=== PATIENT | female | born 1955 | race Caucasian/White ===

== ENCOUNTER 2017-09-13 09:59 | Inpatient (IN) | payer OTHER ==
[2017-09-13] MEDS ORDERED: SODIUM CHLORIDE 1,000 ML IV SCH ×2 (10:15→17:45)
--- NOTE | 2017-09-13 10:15 | PDOC ---
History of Present Illness - General Chief Complaint: Pain, Acute Stated Complaint: ABD PAIN Time Seen by Provider: 09/13/17 10:07 History Source: Patient Exam Limitations: No Limitations - History of Present Illness Travel History: No Initial Comments: 09/13/17 10:12 62 y/o female with hx of HTN, presents to ER with RLQ pain since last night, getting wodysuria.rse. Denies back pain, fever or chills. Mild nauseousness, no vomiting or diarrhea. No fall or trauma. No dysuria. Timing/Duration: reports: constant Quality: reports: moderate Abdominal Pain Onset Location: reports: RLQ Pain Radiation: reports: no radiation Past History - Past Medical History Allergies/Adverse Reactions: Allergies Allergy/AdvReac Type Severity Reaction Status Date / Time No Known Allergies Allergy Verified 09/13/17 09:59 Home Medications: Ambulatory Orders Atenolol [Tenormin -] 100 mg PO DAILY 09/13/17 Ranitidine [Zantac -] 150 mg PO DAILY 09/13/17 COPD: No HTN: Yes Other medical history: DIVERTICULITIS - Suicide/Smoking/Psychosocial Hx Smoking History: Never smoked Hx Alcohol Use: No Drug/Substance Use Hx: No Substance Use Type: None Review of Systems - Review of Systems Able to Perform ROS?: Yes Is the patient limited Sinhala proficient: No Constitutional: No: Chills, Fever HEENTM: No: Throat Pain Respiratory: No: Cough, Shortness of Breath Cardiac (ROS): No: Chest Pain, Palpitations ABD/GI: Yes: Nausea, Abdominal cramping. No: Diarrhea, Vomiting All Other Systems: Reviewed and Negative *Physical Exam - Vital Signs Last Vital Signs Temp Pulse Resp BP Pulse Ox 0/0 09/13/17 09:59 - Physical Exam General Appearance: Yes: Nourished, Appropriately Dressed. No: Apparent Distress HEENT: positive: EOMI, MARY, Normal ENT Inspection, Normal Voice Neck: positive: Trachea midline, Normal Thyroid, Supple Respiratory/Chest: positive: Lungs Clear, Normal Breath Sounds. negative: Chest Tender, Respiratory Distress Cardiovascular: positive: Regular Rhythm, Regular Rate, S1, S2 Vascular Pulses: Femoral (R): 4+, Femoral (L): 4+, Carotid (R): 4+, Carotid (L) : 4+, Dorsalis-Pedis (R): 4+, Doralis-Pedis (L): 4+ Gastrointestinal/Abdominal: positive: Normal Bowel Sounds, Tender (RLQ tenderness, no LLQ or LUQ tenderness, no RUQ tenderness noted), Flat, Soft. negative: Organomegaly, Pulsatile Mass Lymphatic: negative: Adenopathy, Tenderness, Other Musculoskeletal: positive: Normal Inspection. negative: CVA Tenderness Extremity: positive: Normal Capillary Refill, Normal Inspection, Normal Range of Motion Integumentary: positive: Normal Color, Dry, Warm Neurologic: positive: shank paperer II-XII NML intact, Fully Oriented, Alert, Normal Mood/ Affect, Normal Response, Motor Strength 03/06 ED Treatment Course - LABORATORY CBC & Chemistry Diagram: 09/13/17 10:20 09/13/17 10:20 - ADDITIONAL ORDERS Additional order review: 09/13/17 14:25 CT abd/pelvis: ruptured appendicitis/ abscess Progress Note - Progress Note Progress Note: Pt with increasing RLQ pain, will obtain CT abdomen/pelvis to r/o appendicitis Spoke with Surgeon Dr. Dougherty, who will trasnfer pt and place on Zosyn Will try interventional drainage first theen possible open lap Pt is in agreement with plan Spoke with Hospitalist Dr. Alberts, agrees with plan *DC/Admit/Observation/Transfer Diagnosis at time of Disposition: Ruptured appendicitis - Discharge Dispostion Condition at time of disposition: Stable Admit: Yes - Referrals - Patient Instructions - Post Discharge Activity
[2017-09-13 10:37] LABS: MCH 31.4 pg (25.7-33.7); MCHC 34.1 g/dl (32.0-36.0); MEAN PLT VOLUME 8.5 fl (7.5-11.1); PLATELET COUNT 168 K/MM3 (134-434); RDW 12.6 % (11.6-15.6); WHITE BLOOD COUNT 15.1 K/mm3 (4.0-10.8)
[2017-09-13 10:42] LABS: URINE BILIRUBIN Negative (NEGATIVE); URINE BLOOD Negative (NEGATIVE); URINE GLUCOSE (UA) Negative (NEGATIVE); URINE KETONE Negative (NEGATIVE); URINE LEUK ESTERASE Negative (NEGATIVE); URINE NITRITE Negative (NEGATIVE); URINE UROBILINOGEN 0.2 (0.2-1.0)
[2017-09-13 10:43] LABS: URINE APPEARANCE CLOUDY; URINE COLOR YELLOW; URINE PROTEIN 2+ (NEGATIVE)
[2017-09-13 10:57] LABS: URINE RBC 0-2 /hpf (0-3)
[2017-09-13 10:58] LABS: ALBUMIN 4.2 g/dl (3.5-5.0); ALK PHOS 57 U/L (32-92); ANION GAP 9 (8-16); BILIRUBIN,TOTAL 1.5 mg/dl (0.2-1.0); CALCIUM 9.1 mg/dl (8.4-10.2); CO2 27 mmol/L (22-28); CREATININE 0.9 mg/dl (0.6-1.3); GLUCOSE,RANDOM 124 mg/dl (74-106); SGOT/AST 30 U/L (10-42); SGPT/ALT 28 U/L (10-40); TOT PROT 7.3 g/dl (6.4-8.3); URINE BACTERIA MANY /hpf (NEGATIVE)
[2017-09-13 11:27] LABS: PLATELET ESTIMATE ADEQUATE
[2017-09-13] MEDS ORDERED: morphine SULFATE 4 MG/ML VIAL IVPUSH ONE (11:43)
[2017-09-13] MEDS ORDERED: ONDANSETRON 4 MG/2 ML VIAL IVPUSH ONE (11:43)
[2017-09-13] MEDS ORDERED: morphine SULFATE 4 MG/ML VIAL ONE (11:44)
[2017-09-13] MEDS ORDERED: ONDANSETRON 4 MG/2 ML VIAL ONE (11:44)
[2017-09-13] MEDS ORDERED: PIPERACILLIN/TAZOBACTAM 3.375 GM VIAL IVPB ONE (13:32)
[2017-09-13] MEDS ORDERED: PIPERACIL/TAZOB 3.375 GM 3.375 GM/50 ML PREMIX IVPB ONE (14:00)
[2017-09-13] MEDS ORDERED: morphine SULFATE 4 MG/ML VIAL IVPUSH PRN ×3 (14:29→19:38)
[2017-09-13] MEDS: FAMOTIDINE 20 MG/50 ML IVPB 20 MG/50 ML MG IVPB SCH (15:15)
--- NOTE | 2017-09-13 15:56 | CONS ---
DATE OF CONSULTATION: 09/13/2017 REQUESTING PHYSICIAN: Dr. Sommers (ER physician.) RESPONDING PHYSICIAN: Ty Caruso MD (General Surgery). REASON FOR CONSULTATION: Perforated appendicitis. HISTORY: This is a 62-year-old woman who states that she has been in her usual state of good health up until about 18 hours ago, when she had developed right lower quadrant pain. Her family prompted her to come to the emergency room for evaluation. Here in the emergency room, she was found to have well-localized right lower quadrant tenderness, and CT evaluation of the abdomen and pelvis was requested and performed. That CT demonstrates evidence that is consistent with perforated appendicitis and a right pelvic abscess measuring approximately 4 cm in diameter. The wall of the abscess seems to be made up of the sigmoid colon, a portion of the terminal ileum, and the distal appendix. The patient states that she does have a lot of arthritic pain and does take a lot of anti-inflammatory medication but has no recollection of having any abdominal symptoms or associated symptoms during the past 1 to 2 weeks. Actually, she states that she has been eating right through yesterday and moving her bowels as of this morning. Her only complaint is well-localized right lower quadrant pain. She denies fever and chills. The patient has no significant past medical history. No history of heart disease; diabetes; respiratory, renal or hepatic insufficiency. Patient does have a history of hypertension. PAST SURGICAL HISTORY: Nil. ALLERGIES: None known. REGULAR MEDICATIONS: Antihypertensives only. SOCIAL HISTORY: Negative tobacco, negative alcohol. FAMILY HISTORY: Significant for lung cancer, which is felt to be tobacco related. REVIEW OF SYSTEMS: Otherwise nil. PHYSICAL EXAMINATION: General: Awake, alert, in no acute distress. Vital Signs: Stable, afebrile. No tachycardia. Abdomen: Obese, soft, with well-localized tenderness in the right lower quadrant associated with guarding. No palpable mass but clear tenderness. LABORATORY DATA: White count 15.1, with a normal hemoglobin and hematocrit. Electrolytes within normal limits. IMPRESSION: Perforated appendicitis with right pelvic abscess. Hemodynamically stable. Well-localized tenderness in the right lower quadrant on examination, with no diffuse findings. Functioning gut. SUGGEST: After a lengthy discussion with patient and her family, I have decided to move in the direction of nonoperative management at this time, intravenous antibiotics, percutaneous drainage. If the patient improves, she will require an interval appendectomy in approximately 12 weeks' time. If the patient fails conservative management or if there is no adequate improvement ultimately, she will require surgery. Given the findings on CT scan, she will likely require laparotomy. At this juncture, patient to be n.p.o. IV Zosyn started, and to continue. Repeat labs in a.m. Clinical followup. Situation reviewed at length with patient and family. All options reviewed, including surgery, at this juncture. Patient wants an attempt at nonoperative management. She is hemodynamically stable and there is no contraindication to such. Will follow and manage. Prognosis guarded. TY CARUSO M.D. ALISON/[id number]
[2017-09-13] MEDS ORDERED: METOPROLOL TARTRATE 5 MG/5 ML VIAL IVPUSH SCH ×2 (16:00→18:00)
--- NOTE | 2017-09-13 16:44 | HP ---
CHIEF COMPLAINT: PCP: HISTORY OF PRESENT ILLNESS: ER course was notable for: (1) (2) (3) Recent Travel: PAST MEDICAL HISTORY: PAST SURGICAL HISTORY: Social History: Smoking: Alcohol: Drugs: Family History: Allergies No Known Allergies Allergy (Verified 09/13/17 09:59) HOME MEDICATIONS: Home Medications Medication Instructions Recorded Atenolol [Tenormin -] 100 mg PO DAILY 09/13/17 Ranitidine [Zantac -] 150 mg PO DAILY 09/13/17 REVIEW OF SYSTEMS CONSTITUTIONAL: Absent: fever, chills, diaphoresis, generalized weakness, malaise, loss of appetite, weight change HEENT: Absent: rhinorrhea, nasal congestion, throat pain, throat swelling, difficulty swallowing, mouth swelling, ear pain, eye pain, visual changes CARDIOVASCULAR: Absent: chest pain, syncope, palpitations, irregular heart rate, lightheadedness , peripheral edema RESPIRATORY: Absent: cough, shortness of breath, dyspnea with exertion, orthopnea, wheezing, stridor, hemoptysis GASTROINTESTINAL: Absent: abdominal pain, abdominal distension, nausea, vomiting, diarrhea, constipation, melena, hematochezia GENITOURINARY: Absent: dysuria, frequency, urgency, hesitancy, hematuria, flank pain, genital pain MUSCULOSKELETAL: Absent: myalgia, arthralgia, joint swelling, back pain, neck pain SKIN: Absent: rash, itching, pallor HEMATOLOGIC/IMMUNOLOGIC: Absent: easy bleeding, easy bruising, lymphadenopathy, frequent infections ENDOCRINE: Absent: unexplained weight gain, unexplained weight loss, heat intolerance, cold intolerance NEUROLOGIC: Absent: headache, focal weakness or paresthesias, dizziness, unsteady gait, seizure, mental status changes, bladder or bowel incontinence PSYCHIATRIC: Absent: anxiety, depression, suicidal or homicidal ideation, hallucinations. PHYSICAL EXAMINATION Vital Signs - 24 hr 09/13/17 09/13/17 09/13/17 09:59 14:38 15:36 Temperature 98 F 98.9 F Pulse Rate 82 Pulse Rate [ 88 Right] Respiratory 18 18 Rate Blood Pressure 187/81 158/85 Blood Pressure 158/85 [Left Arm] O2 Sat by Pulse 95 95 Oximetry (%) 09/13/17 15:48 Temperature 98.5 F Pulse Rate Pulse Rate [ 89 Right] Respiratory 19 Rate Blood Pressure Blood Pressure 158/79 [Left Arm] O2 Sat by Pulse 95 Oximetry (%) GENERAL: Awake, alert, and fully oriented, in no acute distress. HEAD: Normal with no signs of trauma. EYES: Pupils equal, round and reactive to light, extraocular movements intact, sclera anicteric, conjunctiva clear. No lid lag. EARS, NOSE, THROAT: Ears normal, nares patent, oropharynx clear without exudates. Moist mucous membranes. NECK: Normal range of motion, supple without lymphadenopathy, JVD, or masses. LUNGS: Breath sounds equal, clear to auscultation bilaterally. No wheezes, and no crackles. No accessory muscle use. HEART: Regular rate and rhythm, normal S1 and S2 without murmur, rub or gallop. ABDOMEN: Soft, nontender, not distended, normoactive bowel sounds, no guarding, no rebound, no masses. No hepatomegaly or splenomegaly. MUSCULOSKELETAL: Normal range of motion at all joints. No bony deformities or tenderness. No CVA tenderness. UPPER EXTREMITIES: 2+ pulses, warm, well-perfused. No cyanosis. No clubbing. No peripheral edema. LOWER EXTREMITIES: 2+ pulses, warm, well-perfused. No calf tenderness. No peripheral edema. NEUROLOGICAL: Cranial nerves II-XII intact. Normal speech. Normal gait. PSYCHIATRIC: Cooperative. Good eye contact. Appropriate mood and affect. SKIN: Warm, dry, normal turgor, no rashes or lesions noted, normal capillary refill. Laboratory Results - last 24 hr 09/13/17 09/13/17 09/13/17 10:20 10:20 10:20 WBC 15.1 H RBC 4.59 Hgb 14.4 Hct 42.2 MCV 92.0 MCH 31.4 MCHC 34.1 RDW 12.6 Plt Count 168 MPV 8.5 Neutrophils % No Result Required. Neutrophils % (Manual) 81.0 Band Neutrophils % 5.0 Lymphocytes % No Result Required. Lymphocytes % (Manual) 9.0 Monocytes % (Manual) 5 Platelet Estimate Adequate Platelet Comment No Result Required. Sodium 137 Potassium 3.8 Chloride 101 Carbon Dioxide 27 Anion Gap 9 BUN 16 Creatinine 0.9 Creat Clearance w eGFR > 60 Random Glucose 124 H Calcium 9.1 Total Bilirubin 1.5 H AST 30 ALT 28 Alkaline Phosphatase 57 Total Protein 7.3 Albumin 4.2 Lipase < 20 L Urine Color Yellow Urine Appearance Cloudy Urine pH 6.0 Ur Specific [place] >= 1.030 H Urine Protein 2+ H Urine Glucose (UA) Negative Urine Ketones Negative Urine Blood Negative Urine Nitrite Negative Urine Bilirubin Negative Urine Urobilinogen 0.2 Ur Leukocyte Esterase Negative Urine RBC 0-2 Urine WBC 2-5 Ur Epithelial Cells Many Urine Bacteria Many ASSESSMENT/PLAN:
--- NOTE | 2017-09-13 16:44 | HP ---
Admitting History and Physical - Admission History of Present Illness: 62F with PMH of HTN and GERD presents to the ED with a 1 day history of abdominal pain. patient states she was in her usual state of health and was having a great day yesterday when she all of a sudden at 4pm started having abdominal bloating she felt like she had to have a bowl movement and she did have three of them with were normal in formation and character for her habits and she did not have relief. the bloating turned into pain. The pain was worse with movement. This morning she woke up diaphoretic and with chills although she denies having a fever. She had some mild nausea but no vomiting. She denies chest pain or shortness of breath. History Source: Patient Limitations to Obtaining History: No Limitations - Past Medical History Cardiovascular: Yes: HTN Gastrointestinal: Yes: GERD - Past Surgical History Past Surgical History: Yes: Tubal Ligation Additional Past Surgical History: Breast mass removal, parotid surgery x3. all negative for malignancy. - Smoking History Smoking history: Never smoked Have you smoked in the past 12 months: No - Alcohol/Substance Use Hx Alcohol Use: No Home Medications - Allergies Allergies/Adverse Reactions: Allergies Allergy/AdvReac Type Severity Reaction Status Date / Time No Known Allergies Allergy Verified 09/13/17 09:59 - Home Medications Home Medications: Ambulatory Orders Atenolol [Tenormin -] 100 mg PO DAILY 09/13/17 Ranitidine [Zantac -] 150 mg PO DAILY 09/13/17 Review of Systems - Review of Systems Constitutional: reports: Chills, Diaphoresis Eyes: reports: No Symptoms HENT: reports: No Symptoms Neck: reports: No Symptoms Cardiovascular: reports: No Symptoms Respiratory: reports: No Symptoms Gastrointestinal: reports: Abdominal Pain, Bloating, Nausea. denies: Constipation, Diarrhea, Melena, Vomiting Genitourinary: reports: No Symptoms Neurological: reports: No Symptoms Endocrine: reports: No Symptoms Psychiatric: reports: No Symptoms Physical Examination Vital Signs: Vital Signs Temperature 98.5 F 09/13/17 15:48 Pulse Rate 89 09/13/17 15:48 Respiratory Rate 19 09/13/17 15:48 Blood Pressure 158/79 09/13/17 15:48 O2 Sat by Pulse Oximetry (%) 95 09/13/17 15:48 Constitutional: Yes: No Distress, Obese Eyes: Yes: Conjunctiva Clear, EOM Intact HENT: Yes: Atraumatic, Normocephalic Neck: Yes: Supple, Trachea Midline Cardiovascular: Yes: Regular Rate and Rhythm, S1, S2 Respiratory: Yes: Regular, CTA Bilaterally Gastrointestinal: Yes: Soft, Tenderness (RLQ with rebound) Edema: No Neurological: Yes: Alert, Oriented, Cran Nerves II-XII Intact ...Motor Strength: WNL Psychiatric: Yes: Alert, Oriented Labs: CBC, BMP 09/13/17 10:20 09/13/17 10:20 Imaging - Results Cat Scan: Report Reviewed, Image Reviewed Assessment/Plan 62F with PMH of HTN presents to the ED with RLQ abdominal pain found to have acute perforated appendicitis with abscess formation on CT scan. Acute perforated appendicitis with abscess formation: Admit to inpatient med/surg NPO IVF surgery consult appreciated for IR drainage of abscess if unsuccessful then to OR for appendectomy continue IV ABx with zosyn ID consult HTN: Hold PO Atenelol while NPO metoprolol 5mg IV q4h with hold parameters GERD: continue H2 abilio IV FEN: NS @ 125ml/hr no electrolyte issues NPO PPx: HSQ/SCDs Pepcid currently PT consult not indicated Patient seen and examined with attending and admitting risk management intern Full H&P to follow Visit type - Emergency Visit Emergency Visit: Yes Care time: The patient presented to the Emergency Department on the above date and was hospitalized for further evaluation of their emergent condition. - New Patient This patient is new to me today: Yes Date on this admission: 09/13/17 - Critical Care Critical Care patient: No
[2017-09-13] MEDS ORDERED: HEPARIN NA (PORCINE) 5,000 UNITS/ML 1ML VIAL SQ SCH ×2 (17:45→22:00)
[2017-09-13] MEDS ORDERED: ONDANSETRON 4 MG/2 ML VIAL IVPUSH PRN (18:00)
[2017-09-13] MEDS ORDERED: FAMOTIDINE 20 MG/50 ML IVPB 20 MG/50 ML MG IVPB SCH ×2 (18:00→20:15)
[2017-09-13] MEDS ORDERED: PIPERACILLIN/TAZOB 3.375 GM/50 ML PRE-DOCKED IVPB SCH (18:00)
--- NOTE | 2017-09-13 18:01 | HP ---
CHIEF COMPLAINT: Abdominal Pain, Nausea HISTORY OF PRESENT ILLNESS: 62yo F with MHx of HTN and GERD who developed severe cramping abdominal pain centrally located about 16:00 on 09/12 (yesterday). Pt states she had eaten an egg sandwich prior, and thought it was just some GI upset so did not want to come to the ER that day. Pt reports the pain increasing in severity and moving more towards her RLQ. She confirms associated nausea and has subjective fevers with chills some sweats. Pt states she has had 3 formed non-bloody BM since the beginning of her pain. Pt denies vomiting, SOB, CP/discomfort, dysuria, polyuria , and an unexplained change in weight. Denies any steroid usage. ER course was notable for: (1) Abd CT with IV contrast: Probable appendicitis with perforation and 3.4cm x 1.8cm abscess formation; CBD dilation 8mm without hepatic or pancreatic duct involvement. (2) Blood cultures pending (3) Zosyn 3.375 x1 dose administration (4) Dr. 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 Family History: Deferred Allergies No Known Allergies Allergy (Verified 09/13/17 09:59) HOME MEDICATIONS: Home Medications Medication Instructions Recorded Atenolol [Tenormin -] 100 mg PO DAILY 09/13/17 Ranitidine [Zantac -] 150 mg PO DAILY 09/13/17 REVIEW OF SYSTEMS CONSTITUTIONAL: Present: Fever, chills, diaphoresis Absent: generalized weakness, malaise, loss of appetite, weight change HEENT: Absent: rhinorrhea, nasal congestion, throat pain, throat swelling, difficulty swallowing, mouth swelling, ear pain, eye pain, visual changes CARDIOVASCULAR: Absent: chest pain, syncope, palpitations, irregular heart rate, lightheadedness , peripheral edema RESPIRATORY: Absent: cough, shortness of breath, dyspnea with exertion, orthopnea, wheezing, stridor, hemoptysis GASTROINTESTINAL: Present: Abdominal pain, nausea Absent: abdominal distension, vomiting, diarrhea, constipation, melena, hematochezia GENITOURINARY: Absent: dysuria, frequency, urgency, hesitancy, hematuria, flank pain, genital pain MUSCULOSKELETAL: Absent: myalgia, arthralgia, joint swelling, back pain, neck pain SKIN: Absent: rash, itching, pallor HEMATOLOGIC/IMMUNOLOGIC: Absent: easy bleeding, easy bruising, lymphadenopathy, frequent infections ENDOCRINE: Absent: unexplained weight gain, unexplained weight loss, heat intolerance, cold intolerance NEUROLOGIC: Absent: headache, focal weakness or paresthesias, dizziness, unsteady gait, seizure, mental status changes, bladder or bowel incontinence PSYCHIATRIC: Absent: anxiety, depression, suicidal or homicidal ideation, hallucinations. PHYSICAL EXAMINATION Vital Signs - 24 hr 09/13/17 09/13/17 09/13/17 09:59 14:38 15:36 Temperature 98 F 98.9 F Pulse Rate 82 Pulse Rate [ 88 Right] Respiratory 18 18 Rate Blood Pressure 187/81 158/85 Blood Pressure 158/85 [Left Arm] O2 Sat by Pulse 95 95 Oximetry (%) 09/13/17 15:48 Temperature 98.5 F Pulse Rate Pulse Rate [ 89 Right] Respiratory 19 Rate Blood Pressure Blood Pressure 158/79 [Left Arm] O2 Sat by Pulse 95 Oximetry (%) GENERAL: Awake, alert, NAD, resting comfortably in bed HEENT: No JVD, EOMI, KRISTOPHER, sclera anicteric, Dry mucous membranes with normal structures of the mouth, cushingoid appearance with hump on posterior neck LUNGS: CTA bilaterally. No wheezes, rhonchi, rales. HEART: RRR, normal S1 and S2 present without murmur ABDOMEN: Soft, nondistended, no bowel sounds appreciated, tenderness in the RLQ ; all other quadrants NT, no rebound or guarding, negative Rosving's, negative psoas sign, no hepatomegaly appreciated. MUSCULOSKELETAL: Normal range of motion at all joints. No CVA tenderness. EXTREMITIES: 2+ DP pulses, grossly 5/5 in strenght. No edema appreciated. NEUROLOGICAL: Alert and oriented x3. Nonfocal SKIN: Warm, no rashes or lesions noted Laboratory Results - last 24 hr 09/13/17 09/13/17 09/13/17 10:20 10:20 10:20 WBC 15.1 H RBC 4.59 Hgb 14.4 Hct 42.2 MCV 92.0 MCH 31.4 MCHC 34.1 RDW 12.6 Plt Count 168 MPV 8.5 Neutrophils % No Result Required. Neutrophils % (Manual) 81.0 Band Neutrophils % 5.0 Lymphocytes % No Result Required. Lymphocytes % (Manual) 9.0 Monocytes % (Manual) 5 Platelet Estimate Adequate Platelet Comment No Result Required. Sodium 137 Potassium 3.8 Chloride 101 Carbon Dioxide 27 Anion Gap 9 BUN 16 Creatinine 0.9 Creat Clearance w eGFR > 60 Random Glucose 124 H Calcium 9.1 Total Bilirubin 1.5 H AST 30 ALT 28 Alkaline Phosphatase 57 Total Protein 7.3 Albumin 4.2 Lipase < 20 L Urine Color Yellow Urine Appearance Cloudy Urine pH 6.0 Ur Specific [place] >= 1.030 H Urine Protein 2+ H Urine Glucose (UA) Negative Urine Ketones Negative Urine Blood Negative Urine Nitrite Negative Urine Bilirubin Negative Urine Urobilinogen 0.2 Ur Leukocyte Esterase Negative Urine RBC 0-2 Urine WBC 2-5 Ur Epithelial Cells Many Urine Bacteria Many ASSESSMENT/PLAN: 62yo F with only history of HTN GERD and diverticulosis who presented with abdominal pain, nausea, subjective fevers found to have acute appendicitis with perforation and abscess formation via IV contrasted CT of the abdomen. Pt transferred to [facility]. 1) Acute appendicitis with perforation and abscess formation --NPO --NS@125cc/hr --Pain control: Morphine 4mg q4h PRN --Nausea control: Zofran 4mg IVP PRN --General surgery consulted --Pt to go for IR drainage of abscess tomorrow (09/14) --If failure to drain collection, will begin to think about possible intra -abdominal surgery 2) Hypertension --Early hypertensive episodes most likely 2/2 to pain --Continue Lopressor 5mg IVP q4 --Monitor BP 3) GERD --Pepcid 20mg with IVPB BID FEN: Fluids: NS@125cc/hr Electrolyte abnormalities: None currently Nutrition: NPO PPX: DVT - SCDs applied to both legs GI - Pepcid 20mg IVPB BID Dispo: M/S; for IR procedure tomorrow for abscess drainage Case discussed with Dr. De Los Santos and Dr. Adriane Campbell, DO - Internal Medicine PGY-1 Visit type - Emergency Visit Emergency Visit: Yes Care time: The patient presented to the Emergency Department on the above date and was hospitalized for further evaluation of their emergent condition. - New Patient This patient is new to me today: Yes Date on this admission: 09/13/17 - Critical Care Critical Care patient: No
--- NOTE | 2017-09-13 19:20 | PN ---
Teaching Attending Note Name of Resident: Josiah Campbell ATTENDING PHYSICIAN STATEMENT I saw and evaluated the patient. I reviewed the resident's note and discussed the case with the resident. I agree with the resident's findings and plan as documented. SUBJECTIVE: Patient was transferred from [facility] for having appendicitis and possible an abscess. OBJECTIVE: Vital Signs Temperature 98.5 F 09/13/17 15:48 Pulse Rate 89 09/13/17 15:48 Respiratory Rate 19 09/13/17 15:48 Blood Pressure 158/79 09/13/17 15:48 O2 Sat by Pulse Oximetry (%) 95 09/13/17 15:48 CBCD WBC 15.1 K/mm3 (4.0-10.8) H 09/13/17 10:20 RBC 4.59 M/mm3 (3.60-5.2) 09/13/17 10:20 Hgb 14.4 GM/dl (10.7-15.3) 09/13/17 10:20 Hct 42.2 % (32.4-45.2) 09/13/17 10:20 MCV 92.0 fl (80-96) 09/13/17 10:20 MCHC 34.1 g/dl (32.0-36.0) 09/13/17 10:20 RDW 12.6 % (11.6-15.6) 09/13/17 10:20 Plt Count 168 K/MM3 (134-434) 09/13/17 10:20 MPV 8.5 fl (7.5-11.1) 09/13/17 10:20 CMP Sodium 137 mmol/L (136-145) 09/13/17 10:20 Potassium 3.8 mmol/L (3.5-5.1) 09/13/17 10:20 Chloride 101 mmol/L (98-107) 09/13/17 10:20 Carbon Dioxide 27 mmol/L (22-28) 09/13/17 10:20 Anion Gap 9 (8-16) 09/13/17 10:20 BUN 16 mg/dl (7-18) 09/13/17 10:20 Creatinine 0.9 mg/dl (0.6-1.3) 09/13/17 10:20 Creat Clearance w eGFR > 60 (>60) 09/13/17 10:20 Random Glucose 124 mg/dl (74-106) H 09/13/17 10:20 Calcium 9.1 mg/dl (8.4-10.2) 09/13/17 10:20 Total Bilirubin 1.5 mg/dl (0.2-1.0) H 09/13/17 10:20 AST 30 U/L (10-42) 09/13/17 10:20 ALT 28 U/L (10-40) 09/13/17 10:20 Alkaline Phosphatase 57 U/L (32-92) 09/13/17 10:20 Total Protein 7.3 g/dl (6.4-8.3) 09/13/17 10:20 Albumin 4.2 g/dl (3.5-5.0) 09/13/17 10:20 Current Medications Generic Name Dose Route Start Last Admin Trade Name Freq PRN Reason Stop Dose Admin Heparin Sodium (Porcine) 5,000 unit 09/13/17 17:45 Heparin - SQ TID [facility] Sodium Chloride 1,000 mls @ 125 mls/hr 09/13/17 17:45 Normal Saline - IV ASDIR [facility] Famotidine/Sodium Chloride 20 mg in 50 mls @ 100 mls/hr 09/13/17 18:00 Pepcid 20 Mg Premixed Ivpb - IVPB BID [facility] Metoprolol Tartrate 5 mg 09/13/17 18:00 Lopressor Injection - IVPUSH Q4H [facility] Morphine Sulfate 4 mg 09/13/17 17:44 Morphine Sulfate IVPUSH Q4H PRN PAIN Piperacillin Sod/Tazobactam Sod 3.375 gm 09/13/17 18:00 Zosyn 3.375gm Ivpb (Pre-Docked) IVPB 09/14/17 10:01 Q8H [facility] Protocol Home Medications Medication Instructions Recorded Atenolol [Tenormin -] 100 mg PO DAILY 09/13/17 Ranitidine [Zantac -] 150 mg PO DAILY 09/13/17 PE: per resident's note CT of abdomen: Reported Appendicitis with probable perforation and RLQ possible abscess reported ASSESSMENT AND PLAN: 62F with PMH of HTN presents to the ED with RLQ abdominal pain admitted for acute appendicitis and possible an abscess formation on CT scan. #Acute appendicitis with possible abscess formation was reported : NPO, IVF, surgery consult appreciated for IR drainage for possible reported abscess if unsuccessful then to OR for appendectomy, continue IV ABx with zosyn , ID consult HTN: Hold PO Atenelol while NPO, metoprolol 5mg IV q4h with hold parameters GERD: continue H2 abilio IV DVT:px SCD, post IR will restart Heparin sq
[2017-09-13] MEDS ORDERED: METOPROLOL TARTRATE 5 MG/5 ML VIAL IVPUSH PRN ×2 (19:41→20:22)
[2017-09-13] MEDS ORDERED: LACTATED RINGERS SOLUTION 1,000 ML IV SCH (19:45)
[2017-09-13] MEDS: LACTATED RINGERS SOLUTION 1,000 ML IV SCH (19:50)
[2017-09-13] MEDS ORDERED: PIPERACILLIN/TAZOB 3.375 GM 3.375 GM in DEXTROSE 5%-WATER - 50 ML IVPB SCH (20:00)
[2017-09-13] MEDS ORDERED: PIPERACILLIN/TAZOB 3.375 GM 3.375 GM in DEXTROSE 5%-WATER - 50 ML IVPB ONE (20:30)
[2017-09-13] MEDS ORDERED: PIPERACILLIN/TAZOB 3.375 GM/50 ML PRE-DOCKED IVPB ONE (22:00)
[2017-09-14 03:12] VITALS: BMI 35.8
[2017-09-14] MEDS ORDERED: PIPERACIL/TAZOB 3.375 GM 3.375 GM/50 ML PREMIX IVPB ONE (04:00)
[2017-09-14] MEDS: LACTATED RINGERS SOLUTION 1,000 ML IV SCH (06:20)
[2017-09-14 07:18] LABS: MCH 30.6 pg (25.7-33.7); MCHC 32.9 g/dl (32.0-36.0); MEAN CELL VOLUME 93.1 fl (80-96); MEAN PLT VOLUME 8.4 fl (7.5-11.1); PLATELET COUNT 137 K/MM3 (134-434); RDW 13.4 % (11.6-15.6); WHITE BLOOD COUNT 12.2 K/mm3 (4.0-10.0)
[2017-09-14 10:29] LABS: URINE APPEARANCE CLOUDY; URINE BILIRUBIN NEGATIVE (NEGATIVE); URINE BLOOD 1+ (NEGATIVE); URINE COLOR DKYELLOW; URINE GLUCOSE (UA) NEGATIVE (NEGATIVE); URINE KETONE NEGATIVE (NEGATIVE); URINE NITRITE NEGATIVE (NEGATIVE); URINE UROBILINOGEN NEGATIVE mg/dL (0.2-1.0)
[2017-09-14] MEDS ORDERED: PIPERACILLIN/TAZOB 4.5 GM/100 ML PRE-DOCKED IVPB SCH (10:30)
--- NOTE | 2017-09-14 10:30 | PN ---
Progress Note (short form) - Note Progress Note: ID consult dictated imp/reccd appendicitis- possible perforated appendix to continue zosyn check crp f/u cultures surgery/IR evaluations ongoing Problem List - Problems (1) Ruptured appendicitis Code(s): K35.2 - ACUTE APPENDICITIS WITH GENERALIZED PERITONITIS
[2017-09-14 10:36] LABS: URINE PROTEIN 1+ (NEGATIVE)
[2017-09-14 10:38] LABS: URINE RBC 1; URINE WBC 9
[2017-09-14] MEDS ORDERED: PIPERACILLIN/TAZOB 4.5 GM 4.5 GM in DEXTROSE 5%-WATER - 100 ML IVPB SCH (10:45)
[2017-09-14 11:06] LABS: BASOPHIL 0.8 % (0-2.0); EOSINOPHIL 0.4 % (0-4.5); MCH 31.2 pg (25.7-33.7); MCHC 33.5 g/dl (32.0-36.0); MEAN PLT VOLUME 8.1 fl (7.5-11.1); NEUTROPHILS 79.4 % (42.8-82.8); PLATELET COUNT 122 K/MM3 (134-434); RDW 13.1 % (11.6-15.6); WHITE BLOOD COUNT 11.9 K/mm3 (4.0-10.0)
[2017-09-14 11:19] LABS: INR 1.22 (0.82-1.09); PROTHROMBIN TIME (PATIENT) 13.8 SEC (9.98-11.88)
[2017-09-14 11:21] LABS: ACTIVATED PTT 28.3 SECONDS (26.9-34.4)
[2017-09-14 11:41] LABS: ANION GAP 9 (8-16); CALCIUM 8.1 mg/dL (8.5-10.1); CO2 26 mmol/L (21-32); GLUCOSE,RANDOM 106 mg/dL (74-106); SGOT/AST 14 U/L (15-37); SGPT/ALT 22 U/L (12-78)
[2017-09-14 11:43] LABS: ALK PHOS 53 U/L (45-117); BILIRUBIN,TOTAL 1.3 mg/dL (0.2-1.0); TOT PROT 6.3 g/dl (6.4-8.2)
[2017-09-14] MEDS ORDERED: ROCURONIUM BROMIDE 50 MG/5 ML VIAL ONE (12:12)
[2017-09-14] MEDS ORDERED: MIDAZOLAM HCL 2 MG/2 ML SINGLE DOSE VIAL ONE (12:12)
[2017-09-14] MEDS ORDERED: PROPOFOL 20 ML ONE ×3 (12:12)
[2017-09-14] MEDS ORDERED: ePHEDrine SULFATE 50 MG/1 ML AMPULE ONE (12:12)
[2017-09-14] MEDS: FAMOTIDINE 20 MG/50 ML IVPB 20 MG/50 ML MG IVPB SCH (12:20)
--- NOTE | 2017-09-14 12:42 | PN ---
Progress Note (short form) - Note Progress Note: Surgery ct reviewed with Dr. Hoffman. No obvious abscess. Likely fibroid. pt still with significant pain despite iv abx. will proceed with surgery.
[2017-09-14] MEDS ORDERED: oxyCODONE HCL 5 MG TABLET PO PRN (12:45)
[2017-09-14] MEDS ORDERED: ONDANSETRON 4 MG/2 ML VIAL IVPUSH PRN ×2 (12:45→13:30)
[2017-09-14] MEDS ORDERED: PIPERACILLIN/TAZOBACTAM 4.5 GM VIAL IVPB ONE (12:47)
--- NOTE | 2017-09-14 12:49 | OP ---
Operative Note - Note: Operative Date: 09/14/17 Pre-Operative Diagnosis: acute appendicitis Operation: lapaoroscopic appedectomy, lavage Findings: gangrenous, non perforated appendix with phlegmon Surgeon: Josiah Chandra Anesthesiologist/BLUEPRINT TRACER: Garcia Anderson Anesthesia: General Specimens Removed: appendix Drains & Tubes with Location: griffin abd Operative Report Dictated: Yes
[2017-09-14] MEDS ORDERED: NEOSTIGMINE METHYLSULFATE 0.5 MG/ML - 10 ML MDV ONE (13:22)
[2017-09-14] MEDS ORDERED: PROMETHAZINE HCL 25 MG/1 ML VIAL IVPUSH PRN (13:30)
[2017-09-14] MEDS ORDERED: LACTATED RINGERS SOLUTION 1,000 ML IV SCH (13:30)
[2017-09-14] MEDS ORDERED: morphine SULFATE 4 MG/ML VIAL IVPUSH PRN (14:27)
[2017-09-14 17:13] LABS: URINE LEUK ESTERASE Negative (NEGATIVE)
--- NOTE | 2017-09-14 17:33 | EKG ---
Test Reason : Blood Pressure : / mmHG Vent. Rate : 087 BPM Atrial Rate : 087 BPM P-R Int : 174 ms QRS Dur : 092 ms QT Int : 376 ms P-R-T Axes : 033 -08 004 degrees QTc Int : 452 ms NORMAL SINUS RHYTHM POSSIBLE LEFT ATRIAL ENLARGEMENT LEFT VENTRICULAR HYPERTROPHY ABNORMAL ECG NO PREVIOUS ECGS AVAILABLE Confirmed by MARGARET CLARK, MELANIA ([id number]) on 09/14/2017 5:32:35 PM Referred By: DR TODD Confirmed By:MELANIA ROBLES MD
[2017-09-14] MEDS: PIPERACILLIN/TAZOB 4.5 GM 4.5 GM in DEXTROSE 5%-WATER - 100 ML IVPB SCH (17:49)
[2017-09-14] MEDS ORDERED: METOPROLOL TARTRATE 5 MG/5 ML VIAL IVPUSH SCH (18:00)
--- NOTE | 2017-09-14 18:25 | OP ---
DATE OF OPERATION: 09/14/2017 PREOPERATIVE DIAGNOSIS: Acute appendicitis. POSTOPERATIVE DIAGNOSIS: Acute appendicitis. PROCEDURE: Laparoscopic appendectomy and lavage. ATTENDING SURGEON: Josiah Chandra D.O. ANESTHESIOLOGIST: Garcia Anderson M.D. HEAD GROWER: None. INTRAOPERATIVE FINDINGS: Gangrenous appendix, nonperforated, with phlegmon . DRAINS: Raymundo-Nowak drain in the right lower quadrant. BLOOD LOSS: Minimal. COMPLICATIONS: None. DISPOSITION: Recovery in stable condition. BRIEF HISTORY: This is a 62-year-old female admitted to [facility] with signs and symptoms of acute appendicitis. There was initial CAT scan readings suggesting abscess, but on review by interventional radiology this was felt not to be the case. She was still in significant pain despite 24 hours of intravenous antibiotics and presents now for surgery. PROCEDURE: The patient was placed in supine position. After general anesthesia was initiated, the abdomen was prepped and draped in sterile fashion. The patient was on Zosyn antibiotic . Next, a Matamoros catheter was inserted. The abdomen was prepped and draped. A vertical incision was then made infraumbilical with scalpel blade going through skin and subcutaneous tissue. The fascia was then lifted with Zaira clamp, incised vertically. The peritoneum was entered bluntly. Next, 0 Vicryl stitch was placed across the fascial defect and used to secure the Cleaning trocar. Pneumoperitoneum was then created followed by insertion of a 5-mm, 30-degree laparoscope. Of note, the patient's small ventral hernia above this incision was monitored at the time of surgery. Next, two 5-mm trocars were placed, 1 suprapubic with care to avoid injuring the bladder and 1 in the left lower quadrant lateral to the rectus muscle. At this point, attention was turned toward the right lower quadrant. The appendix was seen. It was thick and inflamed, and gangrenous. The fat from the ligament of Treitz was wrapping over it, as well as the peritoneal cavity serving as a phlegmon. This was teased off. The medial appendix was divided with using Ligasure device. The Endo LILIANA 60-mm purple load stapler was used to divide the appendix at its base. The staple line was inspected, it was intact. There was no bleeding, no break, no sign of ischemia. The appendix was removed through the infraumbilical trocar site in a specimen bag, and sent to pathology marked as specimen. A vigorous lavage was done, all return was clear. There was fibrinous exudate located at the phlegmon space, and a Raymundo-Nowak drain was left in this location and brought out through the suprapubic trocar site and secured with a silk running stitch. Trocars were removed under direct visualization and no bleeding was noted. Overall the patient tolerated the procedure well. The fascia in the infraumbilical trocar site was closed with multiple interrupted 0 Vicryl sutures. The two remaining skin incisions were closed with Biosyn, and Dermabond dressing was placed. Overall, the patient tolerated procedure well. There were no complications. Blood loss was minimal. DO ZACKERY MATIAS/[id number] MTDD
--- NOTE | 2017-09-14 18:31 | PN ---
Teaching Attending Note Name of Resident: Josiah Campbell ATTENDING PHYSICIAN STATEMENT I saw and evaluated the patient. I reviewed the resident's note and discussed the case with the resident. I agree with the resident's findings and plan as documented. SUBJECTIVE: Patient continues to c/o having RLQ pain. OBJECTIVE: Vital Signs Temperature 97.8 F 09/14/17 15:35 Pulse Rate 80 09/14/17 15:35 Respiratory Rate 18 09/14/17 15:35 Blood Pressure 150/80 09/14/17 15:35 O2 Sat by Pulse Oximetry (%) 98 09/14/17 15:35 CBCD WBC 11.9 K/mm3 (4.0-10.0) H 09/14/17 10:45 RBC 4.03 M/mm3 (3.60-5.2) 09/14/17 10:45 Hgb 12.6 GM/dL (10.7-15.3) 09/14/17 10:45 Hct 37.5 % (32.4-45.2) 09/14/17 10:45 MCV 93.0 fl (80-96) 09/14/17 10:45 MCHC 33.5 g/dl (32.0-36.0) 09/14/17 10:45 RDW 13.1 % (11.6-15.6) 09/14/17 10:45 Plt Count 122 K/MM3 (134-434) L 09/14/17 10:45 MPV 8.1 fl (7.5-11.1) 09/14/17 10:45 CMP Sodium 140 mmol/L (136-145) 09/14/17 10:45 Potassium 3.8 mmol/L (3.5-5.1) 09/14/17 10:45 Chloride 105 mmol/L (98-107) 09/14/17 10:45 Carbon Dioxide 26 mmol/L (21-32) 09/14/17 10:45 Anion Gap 9 (8-16) 09/14/17 10:45 BUN 13 mg/dL (7-18) 09/14/17 10:45 Creatinine 1.0 mg/dL (0.55-1.02) 09/14/17 10:45 Creat Clearance w eGFR 55.82 (>60) 09/14/17 10:45 Random Glucose 106 mg/dL (74-106) 09/14/17 10:45 Calcium 8.1 mg/dL (8.5-10.1) L 09/14/17 10:45 Total Bilirubin 1.3 mg/dL (0.2-1.0) H 09/14/17 10:45 AST 14 U/L (15-37) L 09/14/17 10:45 ALT 22 U/L (12-78) 09/14/17 10:45 Alkaline Phosphatase 53 U/L (45-117) 09/14/17 10:45 Total Protein 6.3 g/dl (6.4-8.2) L 09/14/17 10:45 Albumin 3.0 g/dl (3.4-5.0) L 09/14/17 10:45 Current Medications Generic Name Dose Route Start Last Admin Trade Name Freq PRN Reason Stop Dose Admin Atenolol 100 mg 09/15/17 10:00 Tenormin - PO DAILY [facility] Heparin Sodium (Porcine) 5,000 unit 09/14/17 22:00 Heparin - SQ TID [facility] Piperacillin Sod/Tazobactam 100 mls @ 200 mls/hr 09/14/17 18:00 09/14/17 17: 49 Sod 4.5 gm/ Dextrose IVPB 200 mls/hr Q8H-IV [facility] Administration Morphine Sulfate 4 mg 09/14/17 14:27 Morphine Sulfate IVPUSH Q4H PRN PAIN Ondansetron HCl 4 mg 09/14/17 13:30 Zofran Injection IVPUSH Q6H PRN NAUSEA AND/OR VOMITING Oxycodone HCl 7.5 mg 09/14/17 12:45 Roxicodone - PO Q4H PRN PAIN Ranitidine HCl 150 mg 09/15/17 10:00 Zantac - PO DAILY [facility] Home Medications Medication Instructions Recorded Atenolol [Tenormin -] 100 mg PO DAILY 09/13/17 Ranitidine [Zantac -] 150 mg PO DAILY 09/13/17 PE: per resident's note CT of abdomen: Reported Appendicitis with probable perforation and RLQ possible abscess reported ASSESSMENT AND PLAN: 62F with PMH of HTN presents to the ED with RLQ abdominal pain admitted for acute appendicitis and possible an abscess formation on CT scan. #Acute appendicitis with possible abscess formation was reported : NPO, IVF, on IV antibiotic ZOsyn continue ID on the case. patient is going for sx. reviewed the Ct of abdomen and reported that there is no obvious abscess. Called and discussed with that patient needs to go to OR since No obvious abscess reported and patient continues to have severe pain. Patient is going for Sx this morning by discussed with. #HTN: Hold PO Atenelol while NPO, metoprolol 5mg IV q4h with hold parameters #GERD: continue H2 abilio IV DVT:px SCD, heparin sq
[2017-09-14] MEDS: HEPARIN NA (PORCINE) 5,000 UNITS/ML 1ML VIAL SQ SCH (21:28)
[2017-09-14] MEDS ORDERED: FAMOTIDINE 20 MG/50 ML IVPB 20 MG/50 ML MG IVPB SCH (22:00)
[2017-09-15] MEDS: PIPERACILLIN/TAZOB 4.5 GM 4.5 GM in DEXTROSE 5%-WATER - 100 ML IVPB SCH ×3 (01:19→17:22)
[2017-09-15] MEDS: HEPARIN NA (PORCINE) 5,000 UNITS/ML 1ML VIAL SQ SCH ×3 (06:15→21:09)
[2017-09-15 08:20] LABS: MCH 30.7 pg (25.7-33.7); MEAN CELL VOLUME 93.1 fl (80-96); MEAN PLT VOLUME 9.2 fl (7.5-11.1); RDW 13.1 % (11.6-15.6); WHITE BLOOD COUNT 13.3 K/mm3 (4.0-10.0)
[2017-09-15] MEDS ORDERED: PT OWN MED DRAWER 7, Y5N ONE (08:54)
[2017-09-15] MEDS: ATENOLOL 50 MG TABLET (FP) PO SCH (09:05)
[2017-09-15] MEDS: RANITIDINE HCL 150 MG TABLET (FP) PO SCH (09:05)
[2017-09-15 10:19] LABS: PLATELET COUNT 140 K/MM3 (134-434)
--- NOTE | 2017-09-15 12:03 | PN ---
Progress Note (short form) - Note Progress Note: doing well s/p lap appy for appendicitis- found to have gangrenous appendix with phlegmon , no perforation no pain, tolerating clears Vital Signs Period Temp Pulse Resp BP Sys/Bernardo Pulse Ox Last 24 Hr 97.5 F-99.4 F 78-94 16-20 133-158/53-98 95-100 cor-rrr lungs clear abd soft, +drain, NT ext no edema CBC, BMP 09/15/17 07:00 09/14/17 10:45 Microbiology 09/13/17 20:10 Blood - Peripheral Venous Blood Culture - Preliminary NO GROWTH OBTAINED AFTER 24 HOURS, INCUBATION TO CONTINUE FOR 4 DAYS. 09/13/17 20:10 Blood - Peripheral Venous Blood Culture - Preliminary NO GROWTH OBTAINED AFTER 24 HOURS, INCUBATION TO CONTINUE FOR 4 DAYS. 09/13/17 14:00 Blood - Peripheral Venous Blood Culture - Preliminary NO GROWTH OBTAINED AFTER 24 HOURS, INCUBATION TO CONTINUE FOR 4 DAYS. 09/13/17 13:46 Blood - Peripheral Venous Blood Culture - Preliminary NO GROWTH OBTAINED AFTER 24 HOURS, INCUBATION TO CONTINUE FOR 4 DAYS. a/p appendicitis- POD #1, s/p ex lap to continue zosyn f/u cultures ?home in am Problem List - Problems (1) Ruptured appendicitis Code(s): K35.2 - ACUTE APPENDICITIS WITH GENERALIZED PERITONITIS
--- NOTE | 2017-09-15 12:29 | PN ---
Progress Note (short form) - Note Progress Note: surgery pt seen and examined. feels well. no pain. voiding. tolerating liquids. afebrile abd-soft, nt, incisions clean, grififn serous Laboratory Tests 09/15/17 07:00 WBC 13.3 H A/P 1) Pod#1- full liquids till Thursday, cont griffin, stop ivf 2) gangrenous appendicitis- cont griffin, cont iv abx, follow wbc 3) prophylaxis- lovenox, protonix, oob, spirometer
--- NOTE | 2017-09-15 16:51 | PN ---
Physical Exam: SUBJECTIVE: Pt reports no acute events no overnight. States she feels slight tenderness and has much improved pain from before. Pt has not been taking any pain medication, confirmed by nursing and by [employer]. Pt states she has been walking around and has been tolerating her liquid diet without nausea and vomiting. OBJECTIVE: Vital Signs Period Temp Pulse Resp BP Sys/Bernardo Pulse Ox Last 24 Hr 97.5 F-98.2 F 78-94 18-20 148-163/76-98 98 GENERAL: Awake, alert, NAD, resting comfortably in chair HEENT: No JVD, EOMI, KRISTOPHER, moist mucous membranes with normal structures of the mouth, cushingoid appearance LUNGS: CTA bilaterally. No wheezes, rhonchi, rales. Very good air entry HEART: RRR, normal S1 and S2 present without murmur ABDOMEN: Soft, nondistended, normoactive bowel sounds, Incisions with surgical glue C/D/I, slight tenderness in post-surgical area, but otherwise NT, MELISA drain with <10 cc of serosanguinous drainage. MUSCULOSKELETAL: Normal range of motion at all joints. No CVA tenderness. EXTREMITIES: 2+ DP pulses, grossly 5/5 in strength. No edema appreciated. NEUROLOGICAL: Alert and oriented x3. Nonfocal Laboratory Results - last 24 hr 09/14/17 09/15/17 09/15/17 07:45 07:00 07:00 WBC 13.3 H RBC 4.21 Hgb 12.9 Hct 39.2 MCV 93.1 MCH 30.7 MCHC 33.0 RDW 13.1 Plt Count 140 MPV 9.2 D C-Reactive Protein 17.7 H Ur Leukocyte Esterase Negative Active Medications Generic Name Dose Route Start Last Admin Trade Name Riteshq PRN Reason Stop Dose Admin Atenolol 100 mg 09/15/17 10:00 09/15/17 09:05 Tenormin - PO 100 mg DAILY [facility] Administration Heparin Sodium (Porcine) 5,000 unit 09/14/17 22:00 09/15/17 15:05 Heparin - SQ 5,000 unit TID [facility] Administration Piperacillin Sod/Tazobactam 100 mls @ 200 mls/hr 09/14/17 18:00 09/15/17 09: 04 Sod 4.5 gm/ Dextrose IVPB 200 mls/hr Q8H-IV [facility] Administration Morphine Sulfate 4 mg 09/14/17 14:27 Morphine Sulfate IVPUSH Q4H PRN PAIN Ondansetron HCl 4 mg 09/14/17 13:30 Zofran Injection IVPUSH Q6H PRN NAUSEA AND/OR VOMITING Oxycodone HCl 7.5 mg 09/14/17 12:45 Roxicodone - PO Q4H PRN PAIN Ranitidine HCl 150 mg 09/15/17 10:00 09/15/17 09:05 Zantac - PO 150 mg DAILY [facility] Administration ASSESSMENT/PLAN: 1) Acute gangrenous appendicitis with phlegmon --POD 1 of lap. appendectomy --Tolerating full liquids --Pain under control without pain medication being administered --Dr. Mas following --Will keep another day for monitoring --MELISA drain with minimal drainage; per surgery cont. MELISA --ID following: Currently Zosyn 4.5gm q8h --Incentive spirometer continued 2) Hypertension --Tolerating PO; continue Atenolol 100mg PO qDaily 3) GERD --Zantac 150mg PO qDaily FEN: Fluids: None currently; tolerating full liquid diet Electrolyte abnormalities: None currently Nutrition: Per surgery; currently full liquid PPX: DVT - Heparin 5000 SQ TID GI - Pepcid 20mg IVPB BID Dispo: ? discharge tomorrow Case discussed with Dr. Magali Campbell, DO - Internal Medicine PGY-1 Visit type - Emergency Visit Emergency Visit: No - New Patient This patient is new to me today: No - Critical Care Critical Care patient: No
--- NOTE | 2017-09-15 19:48 | PN ---
Teaching Attending Note Name of Resident: Josiah Campbell ATTENDING PHYSICIAN STATEMENT I saw and evaluated the patient. I reviewed the resident's note and discussed the case with the resident. I agree with the resident's findings and plan as documented. SUBJECTIVE: Patient is comfortable with no acute distress. OBJECTIVE: Vital Signs Temperature 97.7 F 09/15/17 08:00 Pulse Rate 78 09/15/17 08:00 Respiratory Rate 18 09/15/17 08:00 Blood Pressure 163/77 09/15/17 08:00 O2 Sat by Pulse Oximetry (%) 98 09/14/17 21:00 CBCD WBC 13.3 K/mm3 (4.0-10.0) H 09/15/17 07:00 RBC 4.21 M/mm3 (3.60-5.2) 09/15/17 07:00 Hgb 12.9 GM/dL (10.7-15.3) 09/15/17 07:00 Hct 39.2 % (32.4-45.2) 09/15/17 07:00 MCV 93.1 fl (80-96) 09/15/17 07:00 MCHC 33.0 g/dl (32.0-36.0) 09/15/17 07:00 RDW 13.1 % (11.6-15.6) 09/15/17 07:00 Plt Count 140 K/MM3 (134-434) 09/15/17 07:00 MPV 9.2 fl (7.5-11.1) D 09/15/17 07:00 CMP Sodium 140 mmol/L (136-145) 09/14/17 10:45 Potassium 3.8 mmol/L (3.5-5.1) 09/14/17 10:45 Chloride 105 mmol/L (98-107) 09/14/17 10:45 Carbon Dioxide 26 mmol/L (21-32) 09/14/17 10:45 Anion Gap 9 (8-16) 09/14/17 10:45 BUN 13 mg/dL (7-18) 09/14/17 10:45 Creatinine 1.0 mg/dL (0.55-1.02) 09/14/17 10:45 Creat Clearance w eGFR 55.82 (>60) 09/14/17 10:45 Random Glucose 106 mg/dL (74-106) 09/14/17 10:45 Calcium 8.1 mg/dL (8.5-10.1) L 09/14/17 10:45 Total Bilirubin 1.3 mg/dL (0.2-1.0) H 09/14/17 10:45 AST 14 U/L (15-37) L 09/14/17 10:45 ALT 22 U/L (12-78) 09/14/17 10:45 Alkaline Phosphatase 53 U/L (45-117) 09/14/17 10:45 Total Protein 6.3 g/dl (6.4-8.2) L 09/14/17 10:45 Albumin 3.0 g/dl (3.4-5.0) L 09/14/17 10:45 Current Medications Generic Name Dose Route Start Last Admin Trade Name Freq PRN Reason Stop Dose Admin Atenolol 100 mg 09/15/17 10:00 09/15/17 09:05 Tenormin - PO 100 mg DAILY [facility] Administration Heparin Sodium (Porcine) 5,000 unit 09/14/17 22:00 09/15/17 15:05 Heparin - SQ 5,000 unit TID [facility] Administration Piperacillin Sod/Tazobactam 100 mls @ 200 mls/hr 09/14/17 18:00 09/15/17 17: 22 Sod 4.5 gm/ Dextrose IVPB 200 mls/hr Q8H-IV [facility] Administration Morphine Sulfate 4 mg 09/14/17 14:27 Morphine Sulfate IVPUSH Q4H PRN PAIN Ondansetron HCl 4 mg 09/14/17 13:30 Zofran Injection IVPUSH Q6H PRN NAUSEA AND/OR VOMITING Oxycodone HCl 7.5 mg 09/14/17 12:45 Roxicodone - PO Q4H PRN PAIN Ranitidine HCl 150 mg 09/15/17 10:00 09/15/17 09:05 Zantac - PO 150 mg DAILY [facility] Administration Home Medications Medication Instructions Recorded Atenolol [Tenormin -] 100 mg PO DAILY 09/13/17 Ranitidine [Zantac -] 150 mg PO DAILY 09/13/17 PE: per resident's note CT of abdomen: Reported Appendicitis with probable perforation and RLQ possible abscess reported ASSESSMENT AND PLAN: 62F with PMH of HTN presents to the ED with RLQ abdominal pain admitted for acute appendicitis and possible an abscess formation on CT scan. # POD #1 for Acute appendicitis without any abscess formation was reported : NPO, IVF, on IV antibiotic ZOsyn continue , ID on the case. patient is going for sx. reviewed the Ct of abdomen and reported that there is no obvious abscess. #HTN: Hold PO Atenelol while NPO, metoprolol 5mg IV q4h with hold parameters #GERD: continue H2 abilio IV DVT:px SCD, heparin sq Possible discharge in am. discussed as per Rizwana Waite.
[2017-09-16] MEDS: PIPERACILLIN/TAZOB 4.5 GM 4.5 GM in DEXTROSE 5%-WATER - 100 ML IVPB SCH ×2 (01:14→11:09)
[2017-09-16] MEDS: HEPARIN NA (PORCINE) 5,000 UNITS/ML 1ML VIAL SQ SCH (06:09)
[2017-09-16 08:09] LABS: BASOPHIL 0.8 % (0-2.0); EOSINOPHIL 1.8 % (0-4.5); MCH 31.3 pg (25.7-33.7); MCHC 33.7 g/dl (32.0-36.0); MEAN CELL VOLUME 92.9 fl (80-96); MEAN PLT VOLUME 8.6 fl (7.5-11.1); NEUTROPHILS 70.8 % (42.8-82.8); PLATELET COUNT 130 K/MM3 (134-434); RDW 12.9 % (11.6-15.6); WHITE BLOOD COUNT 7.5 K/mm3 (4.0-10.0)
--- NOTE | 2017-09-16 10:05 | PN ---
Progress Note (short form) - Note Progress Note: surgery pt reportedly doing well and wants to go home. tolerating liquids. wbc now normal. sugically stable for d/c on augmentin 875 bid for 5 days. stay on liquids till Thursday. F/u next week for drain removal.
[2017-09-16] MEDS ORDERED: PT OWN MED DRAWER 7, Y5N ONE (11:06)
[2017-09-16] MEDS: ATENOLOL 50 MG TABLET (FP) PO SCH (11:08)
[2017-09-16] MEDS: RANITIDINE HCL 150 MG TABLET (FP) PO SCH (11:09)
[2017-09-16 12:09] VITALS: BP 161/85; PULSE 74; TEMP 98.1
--- NOTE | 2017-09-16 17:15 | PATH ---
Surgical Pathology Report Patient Name: KALIN JOHNSON [facility]. Rec. #: [id number] /Age/Gender: 1955 (Age: 62) / F Account: [id number] Location: [address] [place] [address]/[facility] Taken: 09/14/2017 Received: 09/15/2017 Reported: 09/16/2017 Physicians: Josiah Chandra M.D. Specimen(s) Received APPENDIX Clinical History Acute appendicitis Final Diagnosis APPENDIX, LAPAROSCOPIC APPENDECTOMY: ACUTE HEMORRHAGIC AND SUPPURATIVE APPENDICITIS AND PERIAPPENDICITIS. Electronically Signed Lucia Solis M.D. Gross Description Received in formalin, labeled "appendix," is a 6 cm. in length vermiform appendix with a stapled margin of resection and moderate attached fat. The serosa is dias-root with attached exudate. Sectioning reveals a dilated, hemorrhagic lumen. The wall of the appendix averages 0.1 cm. in thickness. Continuous Pillowcase Cutter sections are submitted in one cassette. 09/15/2017 [facility]09/15/2017
--- NOTE | 2017-09-16 18:48 | DS ---
Physical Exam: SUBJECTIVE: Pt seen today walking from bathroom without problem. No acute events overnight. No complaints per patient. Pt hasn't required any post-op pain medication and reports tolerating her full liquid diet without nausea or vomiting. Denies any abdominal pain currently. OBJECTIVE: Vital Signs Period Temp Pulse Resp BP Sys/Bernardo Pulse Ox Last 24 Hr 97.3 F-98.4 F 63-86 18-20 149-161/72-85 PHYSICAL EXAM GENERAL: Awake, alert, NAD, resting comfortably in chair HEENT: No JVD, EOMI, KRISTOPHER, moist mucous membranes with normal structures of the mouth, cushingoid appearance LUNGS: CTA bilaterally. No wheezes, rhonchi, rales. Very good air entry HEART: RRR, normal S1 and S2 present without murmur ABDOMEN: Soft, nondistended, normoactive bowel sounds, Incisions with surgical glue C/D/I, slight tenderness in post-surgical area, but otherwise NT, MELISA drain with <10 cc of serosanguinous drainage. MUSCULOSKELETAL: Normal range of motion at all joints. No CVA tenderness. EXTREMITIES: 2+ DP pulses, grossly 5/5 in strength. No edema appreciated. NEUROLOGICAL: Alert and oriented x3. Nonfocal LABS Laboratory Results - last 24 hr 09/16/17 06:00 WBC 7.5 D RBC 4.03 Hgb 12.6 Hct 37.4 MCV 92.9 MCH 31.3 MCHC 33.7 RDW 12.9 Plt Count 130 L MPV 8.6 Neutrophils % 70.8 Lymphocytes % 20.8 D Monocytes % 5.8 Eosinophils % 1.8 D Basophils % 0.8 Microbiology 09/13/17 20:10 Blood - Peripheral Venous Blood Culture - Final NO GROWTH AFTER 5 DAYS INCUBATION 09/13/17 20:10 Blood - Peripheral Venous Blood Culture - Final NO GROWTH AFTER 5 DAYS INCUBATION 09/13/17 14:00 Blood - Peripheral Venous Blood Culture - Final NO GROWTH AFTER 5 DAYS INCUBATION 09/13/17 13:46 Blood - Peripheral Venous Blood Culture - Final NO GROWTH AFTER 5 DAYS INCUBATION HOSPITAL COURSE: Date of Admission:09/13/17 Date of Discharge: 09/16/17 Pt admitted on 09/13/17 for abdominal pain found to have acute appendicitis confirmed by CT abdomen which also revealed a suspected "RLQ interloop abscess measuring 3.4x1.8cm, a prominent endometrium measuring up to 7mm in diameter, and a nonspecific common bild duct dilation measuring 8mm with no evidence of intrahepatic and pancreatic ductal dilation." Pt was managed by being made NPO, started in normal saline, and consultation to IR was made for her possible abscess collection. Pt was started on Zosyn at this time. During her hospital stay, IR recommended that there was not a true abscess present and pt was taken to the OR for laparoscopic appendectomy with abdominal washout. Pt was found to have gangrenous appendicitis with phlegmon collection,had minimal blood loss during her procedure, and had trocar sites closed with sutures and surgical glue. MELISA drain was also placed in pt's RLQ. Pt is being discharged in stable condition without any need for pain medication and is tolerating diet. Pt is to follow-up as an outpatient for her MELISA removal and was instructed to stay on full liquid diet for the next 2 days. Pt will also be sent home on Augmentin due to the gangrenous nature of her appendicitis. Minutes to complete discharge: 35 Discharge Summary Reason For Visit: ACUTE PERFORATED APPENDICITIS Condition: Stable - Instructions Diet, Activity, Other Instructions: You were hospitalized for appendicitis Please follow with your general medical doctor --If you do not have one please feel free to call [phone] and schedule an appointment under Dr. Velasquez for Dr. Campbell Please follow up with Dr. Chandra for your post-operative follow up Continue antibiotics this evening 1 tablet twice a day. Instructions: Do not lift more than 5lbs for the first week and increase by 5lb for each subsequent week to avoid herniation through the surgical incisions Do not let your incisions soak in water such as in a bath; showering is okay --Your incisions are closed with surgical glue and with dissolvable sutures Please see your staffing specialist for endometriosis seen on CT scan. We will refer you to Dr. Anaya follow up with a gastroeneterologist for dialted common bile dict seen on CT scan. You may need an abdominal MRI. We will refer you to Dr. Baez. Medication changes: None Please continue any medications that you were taking prior to this hospital stay as you had been Referrals: Kurtis Velasquez MD [Staff Physician] - 1 Week (If you would like to change primary care doctors schedule for mondays 1-430pm) Javier Anaya MD [Staff Physician] - 2 Weeks (gyncecologist ) De Baez MD [Staff Physician] - 2 Weeks ([employer] ) Josiah Chandra MD [Staff Physician] - 1 Week Disposition: HOME - Home Medications Comprehensive Discharge Medication List: Ambulatory Orders Atenolol [Tenormin -] 100 mg PO DAILY 09/13/17 Ranitidine [Zantac -] 150 mg PO DAILY 09/13/17 Amox-Tr/K Cl [Augmentin - 875Mg Tablet] 1 tab PO BID #10 tablet 09/16/17 This patient is new to me today: No Emergency Visit: No Critical Care patient: No - Discharge Referral Referred to [facility] No
--- NOTE | 2017-09-16 20:15 | PN ---
Teaching Attending Note Name of Resident: Josiah Campbell ATTENDING PHYSICIAN STATEMENT I saw and evaluated the patient. I reviewed the resident's note and discussed the case with the resident. I agree with the resident's findings and plan as documented. SUBJECTIVE: seen this am, denied nay pain or fever . passed gas , no BM OBJECTIVE: NAD Cv : RRR Lungs : CTAB Ext: no edema ABd : soft, ND, NT. surgical endoscopic scar s noted. MELISA drain in RLQ nl BS ASSESSMENT AND PLAN: 62 y/o lady with h/o HTN who presented with abd pain, and was found to have acute appendicitis with necrosis 1- Acute appendicitis : s/p Appendectopmy POD 1 . doing well cont augementin x 5 days -full liquid diet x 2 days MELISA drain to be removed by surgery f/u with sx 2- HTN: cont atenolol at dc 3- thickened endometrium on CT scan. pt notified, she will follow with [employer] 4- Mild dialtion of Biliary ducts. notified. she will follow with GI for MRCP dispo : dc home
== END 2017-09-16 11:50 | disposition home or self-care (01) | DRG 340 ==
LOC: FER 09:59 → UNDOADMIN 15:04 → JERBED 15:04 → FER 16:29 → J7W 18:00 → J6S 09-14 15:36
PROVIDERS: ADMIT Internal Medicine; ATTEND Internal Medicine
PROC: 0DTJ4ZZ Resection of Appendix, Percutaneous Endoscopic Approach (ICD-10-PCS; principal; 2017-09-14 13:00)
DX: K35.3 Acute appendicitis with localized peritonitis (principal); K21.9 Gastro-esophageal reflux disease without esophagitis; E66.9 Obesity, unspecified; I10 Essential (primary) hypertension; K57.90 Diverticulosis of intestine, part unspecified, without perforation or abscess without bleeding; Z68.35 Body mass index [BMI] 35.0-35.9, adult
CPT/HCPCS: 36415; 71010-TC; 74177-TC; 80053; 81003; 81015; 83690; 83735; 84100; 85025; 85027; 85610; 85730; 86140; 86850; 86900; 86901; 87040; 88304-TC; 93005; 94760; 97116-GP; 97161-GP; 99283-25; J1644

== ENCOUNTER 2020-12-30 11:35 | Emergency (ER) | payer OTHER ==
[2020-12-30 11:55] VITALS: BMI 34.2
[2020-12-30 12:30] LABS: BASO % 0.8 % (0-2.0); HEMATOCRIT 44.7 % (32.4-45.2); HEMOGLOBIN 15.4 GM/dL (10.7-15.3); LYMPH % 18.5 % (8-40); MCH 32.3 pg (25.7-33.7); MCHC 34.5 g/dl (32.0-36.0); MEAN CELL VOLUME 93.6 fl (80-96); MEAN PLT VOLUME 8.5 fl (7.5-11.1); MONO % 5.8 % (3.8-10.2); NEUT % 72.9 % (42.8-82.8); PLATELET COUNT 175 K/MM3 (134-434); RBC 4.78 M/mm3 (3.60-5.2); RDW 13.6 % (11.6-15.6); WHITE BLOOD COUNT 9.7 K/mm3 (4.0-10.0)
[2020-12-30 12:49] LABS: POTASSIUM 4.4 mmol/L (3.5-5.1)
[2020-12-30 12:52] LABS: CALCIUM 9.4 mg/dL (8.5-10.1)
[2020-12-30 12:53] LABS: ALBUMIN 4.3 g/dl (3.4-5.0)
[2020-12-30 12:56] LABS: CREATININE 1.1 mg/dL (0.55-1.3)
[2020-12-30 12:58] LABS: BILIRUBIN,TOTAL 1.3 mg/dL (0.2-1); TOT PROT 7.8 g/dl (6.4-8.2)
[2020-12-30 12:59] LABS: EPI CELLS >36 /uL (0-25.1); HYALINE CASTS 103 /uL (0-3.1); URINE APPEARANCE TURBID; URINE BILIRUBIN 1+ (NEGATIVE); URINE COLOR RED; URINE GLUCOSE (UA) NEGATIVE (NEGATIVE); URINE KETONE NEGATIVE (NEGATIVE); URINE LEUK ESTERASE 3+ (NEGATIVE); URINE NITRITE POSITIVE (NEGATIVE); URINE PROTEIN 3+ (NEGATIVE); URINE RBC 30236 /uL (0-23.9); URINE UROBILINOGEN 0.2 mg/dL (0.2-1.0); URINE WBC 204 /uL (0-25.8)
[2020-12-30 13:24] VITALS: BP 170/80; PULSE 72; TEMP 98.5
== END 2020-12-30 13:36 | disposition home or self-care (01) ==
LOC: JER 11:35
DX: N95.0 Postmenopausal bleeding (principal); N39.0 Urinary tract infection, site not specified
CPT/HCPCS: 36415; 80053; 81003; 85025; 87086; 87186; 99283-25

== ENCOUNTER 2024-08-03 12:35 | Inpatient (IN) | payer OTHER ==
[2024-08-03 12:48] VITALS: BMI 34.2
[2024-08-03] MEDS ORDERED: FAMOTIDINE 20 MG/50 ML IVPB 20 MG/50 ML MG IVPB ONE (13:15)
[2024-08-03] MEDS ORDERED: ONDANSETRON 4 MG/2 ML VIAL ONE (13:19)
[2024-08-03] MEDS ORDERED: MAG HYDROX/AL HYDROX/SIMETH 30 ML UNIT-DOSE CUP ONE (13:19)
[2024-08-03] MEDS ORDERED: ACETAMINOPHEN INJECTION 100 ML ONE (13:19)
[2024-08-03] MEDS: SODIUM CHLORIDE 0.9% 500 ML INFUS.BAG IV ONE ×2 (13:40→16:05)
[2024-08-03] MEDS: ACETAMINOPHEN 1000 MG/100 ML BAG IVPB ONE (13:40)
[2024-08-03] MEDS: ONDANSETRON 4 MG/2 ML VIAL IVPUSH ONE (13:40)
[2024-08-03] MEDS: MAG HYDROX/AL HYDROX/SIMETH 30 ML UNIT-DOSE CUP PO ONE (13:40)
[2024-08-03 13:47] LABS: EOS % 3.8 % (0-4.5); HEMATOCRIT 42.3 % (32.4-45.2); HEMOGLOBIN 14.4 GM/dL (10.7-15.3); LYMPH % 14.7 % (8-40); MCH 31.8 pg (25.7-33.7); MCHC 34.2 g/dl (32.0-36.0); MEAN CELL VOLUME 93.1 fl (80-96); MEAN PLT VOLUME 8.3 fl (7.5-11.1); NEUT % 73.5 % (42.8-82.8); PLATELET COUNT 140 10^3/uL (134-434); RBC 4.54 M/mm3 (3.60-5.2); RDW 13.4 % (11.6-15.6); WHITE BLOOD COUNT 5.9 K/mm3 (4.0-10.0)
[2024-08-03 13:55] LABS: EPI CELLS >36 /uL (0-25.1); HYALINE CASTS 2 /uL (0-3.1); PH,URINE 5.5 (5.0-8.0); URINE APPEARANCE CLOUDY; URINE BACTERIA 161 /uL (0-1359); URINE BILIRUBIN NEGATIVE (NEGATIVE); URINE COLOR YELLOW; URINE GLUCOSE (UA) NEGATIVE (NEGATIVE); URINE KETONE NEGATIVE (NEGATIVE); URINE LEUK ESTERASE 2+ (NEGATIVE); URINE NITRITE NEGATIVE (NEGATIVE); URINE PROTEIN 2+ (NEGATIVE); URINE WBC 275 /uL (0-25.8)
[2024-08-03 13:59] LABS: INR 1.04 (0.83-1.09)
[2024-08-03 14:02] LABS: ACTIVATED PTT 28.8 SECONDS (25.2-36.5)
[2024-08-03 14:11] LABS: POTASSIUM 3.9 mmol/L (3.5-5.1)
[2024-08-03 14:14] LABS: ALBUMIN 4.3 g/dl (3.4-5.0); CALCIUM 9.9 mg/dL (8.5-10.1)
[2024-08-03 14:15] LABS: BLOOD UREA NITROGEN 15.7 mg/dL (7-18); MAGNESIUM 2.1 mg/dL (1.8-2.4)
[2024-08-03 14:17] LABS: CREATININE 1.3 mg/dL (0.55-1.3)
[2024-08-03 14:18] LABS: PHOSPHOROUS 2.8 mg/dL (2.5-4.9)
[2024-08-03 14:19] LABS: BILIRUBIN,TOTAL 0.9 mg/dL (0.2-1); TOT PROT 7.9 g/dl (6.4-8.2)
[2024-08-03] MEDS ORDERED: KETOROLAC TROMETHAMINE 15 MG/ML VIAL ONE (14:54)
[2024-08-03] MEDS: KETOROLAC TROMETHAMINE 15 MG/ML VIAL IVPUSH ONE (14:59)
[2024-08-03 15:07] LABS: URINE RBC 1229 /uL (0-23.9); YEAST NONE SEEN (NEGATIVE)
[2024-08-03] MEDS ORDERED: CEFTRIAXONE 1 GM/50 ML BAG ONE (15:54)
[2024-08-03] MEDS: CEFTRIAXONE 1,000 MG in DEXTROSE 5%-WATER - 50 ML IVPB ONE (16:05)
[2024-08-03] MEDS ORDERED: ACETAMINOPHEN 1000 MG/100 ML BAG IVPB PRN (16:31)
[2024-08-03] MEDS ORDERED: TAMSULOSIN HCL 0.4 MG CAP ONE (17:21)
[2024-08-03] MEDS: TAMSULOSIN HCL 0.4 MG CAP PO ONE (17:25)
[2024-08-03] MEDS: LACTATED RINGERS SOLUTION 1,000 ML/1,000 ML INFUS.BAG IV SCH (17:25)
[2024-08-04 07:58] LABS: INR 1.07 (0.83-1.09); PROTHROMBIN TIME (PATIENT) 12.3 SEC (9.7-13.0)
[2024-08-04 08:14] LABS: BLOOD UREA NITROGEN 16.6 mg/dL (7-18); CALCIUM 8.7 mg/dL (8.5-10.1); HEMATOCRIT 34.7 % (32.4-45.2); HEMOGLOBIN 11.7 GM/dL (10.7-15.3); MCH 31.8 pg (25.7-33.7); MCHC 33.8 g/dl (32.0-36.0); MEAN CELL VOLUME 93.9 fl (80-96); MEAN PLT VOLUME 8.8 fl (7.5-11.1); PLATELET COUNT 89 10^3/uL (134-434); RDW 13.3 % (11.6-15.6); WHITE BLOOD COUNT 5.4 K/mm3 (4.0-10.0)
[2024-08-04 08:17] LABS: ALBUMIN 3.2 g/dl (3.4-5.0); CREATININE 1.1 mg/dL (0.55-1.3)
[2024-08-04 08:18] LABS: BILIRUBIN,TOTAL 0.8 mg/dL (0.2-1); TOT PROT 6.1 g/dl (6.4-8.2)
[2024-08-04] MEDS ORDERED: TAMSULOSIN HCL 0.4 MG CAP PO SCH (08:30)
[2024-08-04 09:18] VITALS: BP 150/69; PULSE 77; RESP 18; TEMP 97.6
[2024-08-04] MEDS ORDERED: ATENOLOL 50 MG TABLET (FP) PO SCH (10:00)
[2024-08-04] MEDS ORDERED: CEFTRIAXONE 1 GM in DEXTROSE 5%-WATER - 50 ML IVPB SCH (10:00)
== END 2024-08-04 10:50 | disposition home or self-care (01) | DRG 694 ==
LOC: JER 12:35 → JERBED 15:36 → OBSVTOIN 16:30
PROVIDERS: ADMIT Internal Medicine; ATTEND Nurse Practitioner Acute Care
DX: N13.2 Hydronephrosis with renal and ureteral calculous obstruction (principal); I10 Essential (primary) hypertension; E66.9 Obesity, unspecified; Z68.34 Body mass index [BMI] 34.0-34.9, adult; K21.9 Gastro-esophageal reflux disease without esophagitis
CPT/HCPCS: 36415; 74177-TC; 80053; 81003; 82360; 83690; 83735; 84100; 85025; 85027; 85610; 85730; 87086; 93005; 93010; 99285-25; G0378; J0131